=== PATIENT | male | born 1990 | race Caucasian/White ===

== ENCOUNTER 2021-07-26 09:37 | Day surgery (SDC) | payer MEDICAID, SELFPAY ==
--- NOTE | 2021-07-25 10:58 | P.CONAN_ITS ---
Documented by User: Eva Shipman NP 07/25/21 10:58 HPI - Anesthesia Eval Consult details Narrative: 30yo M for Colonoscopy FOR[facility] Past Medical History Medical History Asthma Surgical History Surgical History History of esophagogastroduodenoscopy (EGD) [place] teeth extracted Social History Social History Patient Tobacco Use Status: Never used Tobacco Use of substances other than those prescribed or required for medical reasons: No Are you DNR?: No Advance Directives: No Advance Directives Information Provided: Yes Meds Allergies Allergy/AdvReac Type Severity Reaction Status Date / Time amoxicillin Allergy Rash Verified 07/26/21 10:51 Home Medications Medication Instructions Recorded Confirmed Last Taken Type Vitamin C 07/21/21 Unknown History Vitamin D3 07/21/21 07/21/21 Unknown History albuterol sulfate 90 mcg/actuation 2 puff PO Q4H 07/21/21 07/21/21 Unknown History aerosol inhaler (ProAir HFA) budesonide-formoterol HFA 80 2 puff INHALATION BID 07/21/21 07/21/21 Unknown History mcg-4.5 mcg/actuation aerosol inhaler (Symbicort) Exam Exam Date and Time: July 25, 2021 105 Assessment and Plan Assessment Anesthesia Assessment: Chart Reviewed Documented by User: Javier Bocanegra MD 07/26/21 15:44 HPI - Anesthesia Eval Consult details Narrative: 30yo M for Colonoscopy neck and shoulder stiffness Currently getting physical therapy [facility] Past Medical History Medical History Asthma Family History Family history of problems with anesthesia: No Surgical History Surgical History History of esophagogastroduodenoscopy (EGD) [place] teeth extracted History of Problems with Anesthesia: No Social History Social History Patient Tobacco Use Status: Never used Tobacco Use of substances other than those prescribed or required for medical reasons: No Are you DNR?: No Advance Directives: No Advance Directives Information Provided: Yes Meds Allergies Allergy/AdvReac Type Severity Reaction Status Date / Time amoxicillin Allergy Rash Verified 07/26/21 10:51 Home Medications Medication Instructions Recorded Confirmed Last Taken Type Vitamin C 07/21/21 Unknown History Vitamin D3 07/21/21 07/21/21 Unknown History albuterol sulfate 90 mcg/actuation 2 puff PO Q4H 07/21/21 07/21/21 Unknown History aerosol inhaler (ProAir HFA) budesonide-formoterol HFA 80 2 puff INHALATION BID 07/21/21 07/21/21 Unknown History mcg-4.5 mcg/actuation aerosol inhaler (Symbicort) Exam Airway Mallampati Class: IV TM Dist: >3cm Neck ROM: Limited Loose/Missing/Broken Teeth: Yes Heart: rrr Lungs: bl breath sounds Assessment and Plan Assessment Anesthesia Assessment: Anesthesia Plan Discussed Final Anesthetic Review Family History of Problems with Anesthesia: No History of Problems with Anesthesia: No NPO: Yes ASA Class: II Final Preanesthetic Review: Meds/Allgs Chart Reviewed, Consent Obtained/Reviewed and Anes Risks/Benef Reviewed Patient Risk: Intermediate Procedure Risk: Intermediate Anesthetic Plan Anesthetic Plan: MAC: Disposition: Standard PACU
[2021-07-26 09:44] VITALS: BMI 31.3
[2021-07-26 10:47] VITALS: BP 120/69; PULSE 78; RESP 16; TEMP 36.6; O2SAT 99
[2021-07-26] MEDS: Lactated Ringers 1,000 ML 100 ML IVCONT (10:50)
--- NOTE | 2021-07-26 12:10 | MHC.SHP ---
Pre-Procedural Eval Section A Date of Service: 07/26/21 The patient is an INPATIENT: No Changes since office visit: No Cold of Flu in the past 2 weeks, No New Medical Problems, No Changes in Medication and No Patient answered all questions The History & Physical has been completed within 30 days and I have reviewed it.: Yes Section B Chief Complaint: fecal abnormalities Allergies: Allergies Allergy/AdvReac Type Severity Reaction Status Date / Time amoxicillin Allergy Rash Verified 07/26/21 10:51 Plan I have reviewed the history and physical and performed a pertinent physical examination on my patient. No changes have occurred unless specified.
--- NOTE | 2021-07-26 12:44 | P.BOP_ITS ---
Brief Operative Note Date of Service: 07/26/21 Pre-op diagnosis: blood in stool Post-op diagnosis: same (colon polyp) Procedure: colonoscopy Surgeon: Jonathan Hernandez Anesthesia: MAC Was an [employer] Supervisor used for this Procedure?: No Estimated blood loss (mL): 2 Pathology: other (bxs ti, sigmoid ,polpy) Condition: stable Disposition: PACU
[2021-07-26 12:48] VITALS: BP 104/64; PULSE 86; RESP 16; TEMP 36.9; O2SAT 98
[2021-07-26 13:03] VITALS: BP 110/71; PULSE 83; RESP 17; O2SAT 100
--- NOTE | 2021-07-26 13:14 | OP_ITS ---
SURGEON: Jonathan Hernandez MD INDICATIONS: Blood in the stool. PREOPERATIVE DIAGNOSIS: POSTOPERATIVE DIAGNOSIS: PROCEDURE PERFORMED: Colonoscopy to the terminal ileum with biopsy. ESTIMATED BLOOD LOSS: COMPLICATIONS: ANESTHESIA: ASSISTANTS: SPECIMENS: MEDICATIONS: Monitored anesthesia care. DESCRIPTION OF PROCEDURE: History and physical were performed. The risks and benefits of the procedure were explained to the patient. An informed consent was obtained and the patient was placed in the left lateral decubitus position. A digital rectal exam was performed and was found to be normal. The Olympus pediatric video colonoscope was introduced into the rectum and advanced to the cecum without difficulty. The cecum was identified by transillumination, palpation, and identification of the ileocecal valve. Examination was performed. The scope was removed. He tolerated the procedure well and was transferred to recovery area in stable condition. FINDINGS: The terminal ileum was normal. The visualized colonic mucosa was normal. The quality of the prep was good. Random biopsies were obtained from the terminal ileum and colon. There was no evidence of colitis or Crohn disease. A small less than 5 mm polyp was identified at 20 cm, removed with biopsy forceps. Random sigmoid biopsies were obtained as well as biopsies from the terminal ileum. Retroflexed examination showed a hypertrophic anal papillae. IMPRESSION: Colon polyp. RECOMMENDATION: Follow up the biopsy results. MD GATO Stafford/ALFREDL / [id number]
[2021-07-26 13:16] VITALS: BP 117/79; PULSE 70; RESP 18; TEMP 36.9; O2SAT 98
== END 2021-07-26 13:43 | disposition home or self-care (01) ==
PROVIDERS: Visit Provider Internal Medicine Gastroenterology
PROC: 0DJD8ZZ Inspection of Lower Intestinal Tract, Via Natural or Artificial Opening Endoscopic (ICD-10-PCS; CPT 45378; principal; 2021-07-26 11:10)
DX: R19.5 Other fecal abnormalities (principal); D12.5 Benign neoplasm of sigmoid colon; K62.89 Other specified diseases of anus and rectum; J45.909 Unspecified asthma, uncomplicated; Z79.51 Long term (current) use of inhaled steroids; Z88.1 Allergy status to other antibiotic agents
CPT/HCPCS: 45380; 88305